=== PATIENT | male | born 1995 | race Two or more races ===

== ENCOUNTER 2019-12-31 07:14 | Emergency (ER) | payer OTHER ==
[~2019-12-31] VITALS: Ht 180.3 cm; Wt 95.3 kg
--- NOTE | 2019-12-31 07:46 | NUR ---
dr galvan at bedside for eval.
[2019-12-31] MEDS ORDERED: FAMOTIDINE (20 MG) 20 MG TABLET ONE (07:49)
[2019-12-31] MEDS ORDERED: diphenhydrAMINE HCL 50 MG CAPSULE ONE (07:49)
[2019-12-31] MEDS ORDERED: diphenhydrAMINE HCL 50 MG CAPSULE PO ONE (08:00)
[2019-12-31] MEDS ORDERED: FAMOTIDINE (20 MG) 20 MG TABLET PO ONE (08:00)
--- NOTE | 2019-12-31 08:24 | NUR ---
Patient discharged to home in stable condition. Written and verbal after care instructions given. Patient verbalizes understanding of instruction.
[2019-12-31 08:25] VITALS: BP 158/91
== END 2019-12-31 08:26 | disposition home or self-care (01) ==
LOC: ER 07:20
DX: T78.1XXA Other adverse food reactions, not elsewhere classified, initial encounter (principal); R07.89 Other chest pain; I10 Essential (primary) hypertension; J45.909 Unspecified asthma, uncomplicated; X58.XXXA Exposure to other specified factors, initial encounter
CPT/HCPCS: 71045; 93005; 99283; Q0163